=== PATIENT | male | born 2000 | race Caucasian/White ===

== ENCOUNTER 2024-02-15 12:28 | Emergency (ER) | payer OTHER, SELFPAY ==
[2024-02-15 13:05] VITALS: BP 107/63; PULSE 67; RESP 14; TEMP 37.1; O2SAT 100
--- NOTE | 2024-02-15 13:52 | ED.URI ---
HPI - URI/Sore Throat General Chief Complaint: Upper Respiratory Infection Stated Complaint: runny nose,sneezing,cough,achiness Time Seen by Provider: 02/15/24 13:53 Source: patient, RN notes reviewed and old records reviewed Mode of arrival: ambulatory Limitations: no limitations History of Present Illness HPI Narrative: 1 day URI symptoms, sick exposure at work. Patient reports that he called in sick today, needs a work note. He has not been taking any medication for his symptoms. He is not in any distress at this time. MD elicited complaint: cough, sore throat, rhinorrhea and nasal congestion Onset (ago): day(s) (1) Consistency: constant Severity: mild Description of mucous: clear and watery Able to tolerate fluids by mouth: Yes Exacerbating factors: nothing Relieving factors: rest Context: sick contacts Associated symptoms: myalgias Related Data Allergies Allergy/AdvReac Type Severity Reaction Status Date / Time No Known Allergies Allergy Mild Verified 02/15/24 12:30 Review of Systems Constitutional: Constitutional: Reports body ache(s) and Reports lethargy ENT: Reports nasal discharge Cardiovascular: Cardiovascular: Denies chest pain and Denies dyspnea Respiratory: Respiratory: Reports cough, Denies stridor and Denies wheezing Musculoskeletal: Musculoskeletal: Reports myalgias Exam Const: General: cooperative, no acute distress, alert and awake Orientation/consciousness: oriented to person, oriented to place and oriented to time HENMT: Head: normal to inspection Ears: TM's normal bilaterally Face/Nose/Sinus: Nasal discharge present clear bilateral Mouth: Yes moist mucous membranes Throat: posterior oropharynx normal Resp: Effort & Inspection: normal respiratory effort and able to speak in complete sentences Auscultation: clear to auscultation bilaterally, no crackles, no rales, no rhonchi and no wheezes Cardio: Palpation: normal PMI Rate: regular rate Rhythm: regular rhythm Heart sounds: S1 normal heart sound present and S2 normal heart sound present Neuro: General: oriented to person, oriented to place and oriented to time Cranial nerves: Yes CN's II-XII intact bilaterally Psych: Appearance: grossly normal Thought process: Normal thought process present Insight: Good insight present (Psych) Judgement: Good judgement present (Psych) Course Course Level of Care: Express Care Visit Vital Signs Vital signs: Vital Signs Temperature 98.7 F 10/05/24 13:05 Pulse Rate 67 02/15/24 13:05 Respiratory Rate 14 02/15/24 13:05 Blood Pressure 107/63 02/15/24 13:05 Pulse Oximetry 100 02/15/24 13:05 Temperature 98.7 F 02/15/24 13:05 Pulse Rate 67 02/15/24 13:05 Respiratory Rate 14 02/15/24 13:05 Blood Pressure 107/63 02/15/24 13:05 Pulse Oximetry 100 02/15/24 13:05 MDM - URI/Sore Throat MDM Narrative Medical decision making narrative: Patient with reassuring physical exam, no distress, nontoxic appearing. Negative COVID, negative strep, negative flu. Work note provided. Follow with primary care provider. Discharge instructions reviewed with patient, as well as provided in writing per nursing staff. The instructions also include specific and strict return/GO TO THE ER as well as f/u information. All questions have been answered, and the patient deny any further questions with discharge and discharge plan. Some parts of this dictation were generated by voice recognition software and may contain typographical and/or grammatical inaccuracies. Differential Diagnosis Differential diagnosis: Likely upper respiratory infection, otitis media, viral infection, influenza and pharyngitis Medical Records Attestation: I reviewed the patient's medical records. Lab Data Attestation: I reviewed the patient's lab results. Labs: Lab Results 02/15/24 Range/Units 13:15 POC Influenza A Ag Negative (Negative) POC Influenza B Ag Negative (Negative) POC SARS C
[2024-02-15 14:26] LABS: EDCOVIDSCREEN Negative (Negative); EDINFLUASCREEN Negative (Negative); EDINFLUBSCREEN Negative (Negative)
== END 2024-02-15 14:09 | disposition home or self-care (01) ==
PROVIDERS: Emergency Provider Nurse Practitioner Family
DX: J06.9 Acute upper respiratory infection, unspecified (principal); Z20.822 Contact with and (suspected) exposure to COVID-19
CPT/HCPCS: 87426; 87804; 99203; G0463